=== PATIENT | female | born 2000 | race African-American/Black ===

== ENCOUNTER 2020-03-31 21:59 | Emergency (ER) | payer MEDICAID ==
[2020-03-31 22:06] VITALS: BP 118/69
[2020-03-31] MEDS ORDERED: TETRACAINE HCL 0.5% OPH SOLN 4 ML OD ONE (22:46)
--- NOTE | 2020-03-31 22:48 | ER Document Report ---
ED Medical Screen (RME) - General Chief Complaint: Eye Injury Stated Complaint: POSSIBLE EYE PROBLEM Time Seen by Provider: 03/31/20 22:42 Information source: Patient Notes: Patient states that she was hit in the eye 4 days ago with a toy. Patient states that initially she did not have any eye pain but the following day she developed right eye tenderness. Patient states she thinks that her right eye became red 3 days ago. Patient states that she thought that she may have gotten an eyelash and started to rub her eyes and then the eye became sore. Patient complains of some blurred vision and right eye tenderness. Patient also complains of vaginal discharge for the past 2 months. Patient denies any urinary symptoms. I have greeted and performed a rapid initial assessment of this patient. A comprehensive ED assessment and evaluation of the patient, analysis of test results and completion of the medical decision making process will be conducted by additional ED providers. - Related Data Allergies/Adverse Reactions: No Known Allergies Allergy (Unverified 04/25/12 23:03) Past Medical History - Immunizations Immunizations up to date: Yes Hx Diphtheria, Pertussis, Tetanus Vaccination: No Physical Exam - Vital signs Vitals: Temp Pulse Resp BP Pulse Ox 98.8 F 79 20 118/69 100 03/31/20 22:05 03/31/20 22:05 03/31/20 22:05 03/31/20 22:05 03/31/20 22:05 - Notes Notes: Subconjunctival hemorrhage to right eye Course - Vital Signs Vital signs: Temp Pulse Resp BP Pulse Ox 98.8 F 79 20 118/69 100 03/31/20 22:05 03/31/20 22:05 03/31/20 22:05 03/31/20 22:05 03/31/20 22:05
[2020-04-01 00:26] LABS: APPEARANCE,URINE SLIGHTLY-CLOUDY; BILIRUBIN,URINE NEGATIVE (NEGATIVE); COLOR,URINE YELLOW; GLUCOSE, URINE NEGATIVE (NEGATIVE); KETONES,URINE TRACE mg/dL (NEGATIVE); LEUKOCYTE ESTERASE,URINE TRACE (NEGATIVE); NITRITE,URINE NEGATIVE (NEGATIVE); PROTEIN,URINE 30 mg/dL (NEGATIVE); URINE SPECIFIC GRAVITY 1.025
--- NOTE | 2020-04-01 01:48 | ER Document Report ---
Doctor's Note Notes: 04/01/20 01:48 Patient wanted to leave. Nurse signed her out AMA before she was seen by myself.
== END 2020-04-01 01:44 | disposition left against medical advice (07) ==
LOC: ER 21:59
DX: Z53.20 Procedure and treatment not carried out because of patient's decision for unspecified reasons (principal); H57.11 Ocular pain, right eye; H53.8 Other visual disturbances; N89.8 Other specified noninflammatory disorders of vagina
CPT/HCPCS: 99281; 81025; 81001; J3490